=== PATIENT | male | born 1960 | race Caucasian/White ===

== ENCOUNTER 2018-10-04 10:51 | Emergency (ER) | payer MEDICARE ==
[2018-10-04 11:45] VITALS: BP 158/104
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
== END 2018-10-04 12:00 | disposition home or self-care (01) ==
LOC: UCEAST 10:51
DX: K04.7 Periapical abscess without sinus (principal); I10 Essential (primary) hypertension; E78.5 Hyperlipidemia, unspecified; Z88.5 Allergy status to narcotic agent
CPT/HCPCS: 70450; 99202; G0463